=== PATIENT | male | born 1955 ===

== ENCOUNTER → 2018-10-04 | Outpatient (CLI) | payer OTHER ==
[~2018-10-04] MED LIST: OXYC-865 PO
--- NOTE | 2018-10-04 08:37 | RADIOLOGY IMAGING REPORT ---
FACILITY: [facility] PATIENT NAME: Fredis Huff : 1955 MR: [id number] V: [id number] EXAM DATE: ORDERING PHYSICIAN: ELDA OTERO TECHNOLOGIST: Location: [facility] [place] Patient: Fredis Huff : 1955 Visit/Account:[id number] Date of Sevice: 10/04/2018 ACUTE ABDOMEN SERIES 3 VIEW HISTORY: Constipation and diarrhea. COMPARISON: None available. FINDINGS: Lines/tubes: None. Bowel gas pattern: Moderate stool in the colon. Otherwise nonobstructive bowel gas pattern. No imelda e air. Soft tissues: 1.3 x 0.7 cm calcification in the left side of the pelvis. Bony structures: Mild degenerative changes in the hips. Mild convex rightward curvature of the thor acolumbar spine. Visualized lung bases: Negative. IMPRESSION: 1. Moderate stool in the colon. Otherwise nonobstructive bowel gas pattern. No free air. 2. 1.3 x 0.7 cm calcification in the left side of the pelvis, probably a phlebolith. Correlate with noncontrast abdomen and pelvis CT if there is concern for nephrolithiasis. Report Dictated By: Jeremie Zuniga MD at 10/04/2018 8:29 AM Report E-Signed By: Jeremie Zuniga MD at 10/04/2018 8:33 AM WSN:[email or web address]
[2018-10-04 08:46] LABS: PLATELET COUNT, AUTOMATED 203 K/uL (150-450)
[2018-10-04 09:26] LABS: LDL CHOLESTEROL 62 mg/dl
== END ==
LOC: RAD 08:11
PROVIDERS: ATTEND Internal Medicine
DX: Z00.00 Encounter for general adult medical examination without abnormal findings (principal); K59.00 Constipation, unspecified
CPT/HCPCS: 36415; 74022; 81001; 82040; 82247; 82306; 82310; 82374; 82435; 82465; 82565; 82607; 82728; 82746; 82947; 83540; 83550; 83718; 84075; 84132; 84153; 84155; 84295; 84443; 84450; 84460; 84478; 84520; 85025

== ENCOUNTER 2018-11-26 00:20 | Day surgery (SDC) | payer OTHER ==
[~2018-11-26] VITALS: Ht 172.7 cm; Wt 70.8 kg
[2018-11-26] VITALS (7 sets, daily range): BP systolic 105–129; BP diastolic 63–89
[~2018-11-26 00:20] MED LIST changes: +CHOL10005 PO; +CYAN25004 PO
[2018-11-26] MEDS ORDERED: LIDOCAINE/SOD BICARB 8.4% SYR ID ONE (10:55)
[2018-11-26] MEDS ORDERED: NORMOSOL R SOLN(*) 1000 ML BAG 1,000 ML IV PRN (10:55)
--- NOTE | 2018-11-26 12:59 | Short(Outpt) Discharge Summary ---
Discharge Summary Reason for Hosp/Final Diag: (1) BRBPR (bright red blood per rectum) Hospital Course & Plan: pt presented for colonoscopy. he tolerated the procedure well and will be discharged home when criteria met. Departure Discharge to: Home Discharge Instructions Home Meds Reported Medications Cyanocobalamin (Vitamin B-12) (Vitamin B12) 2,500 Mcg Tablet, 1000 UNIT PO QDAY 10/11/18 Cholecalciferol (Vitamin D3) (VITAMIN D3) 1,000 Unit Tablet, 1000 UNIT PO DAILY, TAB 10/11/18 Diet: Regular Activity: As Tolerated Special Instructions: repeat colonoscopy 10 yrs ARCENIO COHN Nov 26, 2018 12:58
== END 2018-11-26 13:55 | disposition home or self-care (01) ==
LOC: OR 00:20
PROVIDERS: ATTEND Surgery
DX: K92.2 Gastrointestinal hemorrhage, unspecified (principal); K62.5 Hemorrhage of anus and rectum